=== PATIENT | male | born 1985 | race Caucasian/White ===

== ENCOUNTER → 2016-09-27 | Day surgery (SDC) | payer SELFPAY ==
[~2016-09-27] VITALS: Ht 180.3 cm; Wt 102.5 kg
[~2016-09-27] MED LIST: ASPIRIN325 MG PO; DIFLUCAN100 MG; KEFLEX500 MG PO; MYCOSTATIN OINT30 GM TOP; PERCOCET 5-3251 EACH PO
--- NOTE | ~2016-09-27 | OR ---
PATIENT'S NAME: [facility] AGE: 31 Y [address] ROOM: [place] [address] [place] [facility] [place]: 09/27/2016 OR/Procedure Report DISCHARGE DATE: FAMILY PHYSICIAN: EB MEDINA MD ATTENDING PHYSICIAN: ANDI CORTEZ SURGEON: Andi Cortez MD [employer] MATERIAL: Naresh Ramirez PA-C. DATE OF PROCEDURE: 09/27/2016 PREOPERATIVE DIAGNOSIS: Right Achilles full-thickness wound dehiscence. POSTOPERATIVE DIAGNOSIS: Right Achilles full-thickness wound dehiscence. PROCEDURES: 1. Irrigation and debridement of right Achilles wound included skin, subcutaneous tissue, and tendon. Incision measures 7 cm in length x 4 mm in width x 2 cm in depth. 2. Placement of negative pressure wound VAC. ANESTHESIA: General endotracheal anesthesia. FLUIDS: See anesthesia report. ESTIMATED BLOOD LOSS: Minimal. TOURNIQUET: Right proximal thigh 250 mmHg. SPECIMEN: None. COMPLICATIONS: None. DISPOSITION: Stable in PACU. COUNTS: All counts correct. IMPLANTS: Included negative pressure wound VAC. INDICATIONS: Mr. Neal is a pleasant 31-year-old gentleman, who underwent the noted procedures above. The risks, benefits, and alternatives pursuing a surgical intervention were discussed in detail. I marked the patient's right Achilles indicating the correct surgical site. Anesthesia was consulted for their perioperative evaluation of the patient. DESCRIPTION OF PROCEDURE: The patient was brought from the holding area to the operative room. A time-out was performed. The patient was intubated. He PATIENT'S NAME: [facility] AGE: 31 Y [address] ROOM: [place] [address] [place]: [facility] [place]: 09/27/2016 OR/Procedure Report DISCHARGE DATE: FAMILY PHYSICIAN: EB MEDINA MD ATTENDING PHYSICIAN: ANDI CORTEZ was placed prone. The right lower extremity was then prepped and draped in a sterile fashion. I turned my attention to the right Achilles. The Esmarch was used to exsanguinate the limb and the tourniquet was inflated to 250 mmHg. I began by debriding the incision with a 15-blade knife to skin, subcutaneous tissue, down to and including the Achilles tendon. Some suture material was removed from previous repair. No purulent fluid noted. I then irrigated the wound out with 3 L of normal sterile saline solution via pulsatile lavage. I placed a negative pressure wound VAC and then placed Webril and Freddy over the ankle and foot. The patient was placed back into a CAM walker boot. The tourniquet was let down. The patient was then transferred from the operating room table onto the stretcher and extubated. He was brought to the recovery room in stable condition. There were no intraoperative complications. Of note, my PA, Naresh Ramirez PA-C, played an integral role in the intraoperative care of this patient. This included preoperative positioning, intraoperative expert retraction, and closing and dressing functions. IMPRESSION: The patient is status post the noted procedures above. PLAN: The patient will be nonweightbearing on the right lower extremity. He will be in a CAM walker boot. He has a wound VAC in place. Seeing that the wound did swell, I opted for the Prevena incisional-type wound VAC as opposed to the other wound VAC. He received intraoperative antibiotics and will go home on Keflex. He will follow up in my office in 1 week for repeat clinical evaluation. He will likely also followup with [facility] and have the VAC replaced. He will be discharged home from the PACU provided he meets PACU discharge criteria. ANDI CORTEZ MD PATIENT'S NAME: [facility] AGE: 31 Y [address] ROOM: [place], [place] [address] [place] [facility] [place]: 09/27/2016 OR/Procedure Report DISCHARGE DATE: FAMILY PHYSICIAN: EB MEDINA MD ATTENDING PHYSICIAN: ANDI CORTEZ/denys /[id number] d: 09/27/16 2346 t: 09/28/16 0844, OPERATIVE SUMMARY
== END | disposition disaster alternative care site (69) ==
LOC: GPOC 09-26 13:00 → GSDC 13:00
PROC: 0JDQ0ZZ Extraction of Right Foot Subcutaneous Tissue and Fascia, Open Approach (ICD-10-PCS; principal; 2016-09-27)
DX: T81.31XA Disruption of external operation (surgical) wound, not elsewhere classified, initial encounter (principal); T81.30XA Disruption of wound, unspecified, initial encounter; M76.61 Achilles tendinitis, right leg; F17.210 Nicotine dependence, cigarettes, uncomplicated; Z98.890 Other specified postprocedural states
CPT/HCPCS: J0690; J1100; J1170; J1885; J2001; J2405; J7120